=== PATIENT | male | born 1935 | race Caucasian/White ===

== ENCOUNTER 2017-10-05 10:08 | Inpatient (IN) ==
--- NOTE | 2017-10-05 14:57 | Orthopedic Consult Note ---
Date of Encounter: 10/05/17 Time of Encounter: 12:00 Assessment and Plan (1) Fracture of hip Current Visit: No Status: Acute I did discuss the diagnosis in detail the patient. He has a left displaced femoral neck fracture. Treatment options were discussed and my read recommendation was for left hip hemiarthroplasty. The risks discussed included but were not limited to stiffness, bleeding, infection, blood clots, damage to neurovascular structures, tendons, ligaments, and bone. Also discussed was the risk of continued symptoms and possible need for further procedures. I did discuss the anesthesia risks including stroke, heart attack, and . I did discuss the reasonable, foreseeable postoperative course with the patient. He did wish to proceed and consent was obtained. Qualifiers: Encounter type: initial encounter Fracture type: closed Laterality: left Qualified Code(s): S72.002A - Fracture of unspecified part of neck of left femur, initial encounter for closed fracture History of Present Illness HPI: Mr. Ledbetter is a 82 year old male. He is currently admitted to the hospitalist after being transferred in from [place]. The patient had a fall earlier today resulting in a displaced left femoral neck fracture. On my evaluation he complains of pain isolated to the left hip and groin. No numbness, tingling, or any other associated signs or symptoms or modifying factors. Pain is worse with movement and better with rest. Denies any headaches, neck pain, chest pain , bilateral upper extremity pain, and right lower extremity pain. Past Med Surg Social Fam HX - Past Medical History Medical history: asthma, COPD, dementia, GERD, thyroid disease Additional medical history: Patient reports "asthma." Unable to confirm other medical conditions. Psychiatric history: no psych history - Past Surgical History Surgical History: cataract, cholecystectomy Additional surgical history: Cataract surgery bilateral per patient. - Social History Smoking Status: Never smoker Smokeless Tobacco Status: No Alcohol use: none Drug use: none - Family History Father History Unknown: Yes Adopted: [place]: Toni Family Member Ethnicity: Non- Living Status: Age at : 55 Cause of : ephysema and pneumonia Hx Family Cardiac Disorders: No Hx Family Respiratory Disorders: Yes (ephysema and pneumonia) Hx Family Cancer: No Hx Family GI Disorders: No Hx Family Genitourinary Disorders: No Hx Family Endocrine Disorder: No Hx Family Musculoskeletal Disorders: No Hx Family Neuromuscular Disorders: No Hx Family Neurologic Disorders: No Hx Family HEENT Disorders: No Hx Family Autoimmune Disorders: No Hx Family Reproductive Disorders: No Hx Family Psychosocial Disorders: No Hx Family Medical Disorders: No Mother History Unknown: Yes Adopted: [place]: Dinah Family Member Ethnicity: Non- Living Status: Age at : 86 Hx Family Cardiac Disorders: No Hx Family Respiratory Disorders: No Hx Family Cancer: No Hx Family GI Disorders: Yes (gall bladder removal) Hx Family Genitourinary Disorders: No Hx Family Endocrine Disorder: Yes (Diabetes) Hx Family Musculoskeletal Disorders: No Hx Family Neuromuscular Disorders: No Hx Family Neurologic Disorders: No Hx Family HEENT Disorders: No Hx Family Autoimmune Disorders: No Hx Family Reproductive Disorders: No Hx Family Psychosocial Disorders: No Hx Family Medical Disorders: No Medications and Allergies Acetaminophen [Tylenol] 650 mg PO Q6HR PRN 10/05/17 [History] Budesonide/Formoterol 160/4.5 [Symbicort 160/4.5] 2 puff IH BIDR 10/05/17 [ History] Cholecalciferol (Vitamin D3) [Vitamin D] 50,000 unit PO DAILY 10/05/17 [History] Furosemide [Lasix] 40 mg PO DAILY 10/05/17 [History] Ipratropium/Albuterol Neb [Duoneb] 3 ml IH Q4HR PRN 10/05/17 [History] Levothyroxine Sodium [Levoxyl] 75 mcg PO DAILY 10/05/17 [History] Metoclopramide [Reglan] 5 mg PO ACHS 10/05/17 [History] Omeprazole 20 mg PO DAILY 10/05/17 [History] Potassium Chloride [K-Tab ER] 20 meq PO DAILY 10/05/17 [History] PredniSONE [Cassie] 5 mg PO DAILY 10/05/17 [History] Umeclidinium [place] [Incruse Ellipta] 62.5 mcg IH BID 10/05/17 [History] 3 Allergy/AdvReac Type Severity Reaction Status Date / Time No Known Allergies Allergy Verified 07/12/16 13:30 All Systems Reviewed: Constitutional and musculoskeletal systems were reviewed and are negative unless otherwise stated in history of present illness. Physical Exam - Constitutional Vitals: Temp Pulse Resp BP Pulse Ox 99.0 F 89 16 150/82 90 10/05/17 11:54 10/05/17 11:54 10/05/17 11:54 10/05/17 11:54 10/05/17 11:54 Constitutional -Vitals reviewed -The patient is well developed and well nourished. -Mood is pleasant. -The patient is well groomed. Psychiatric -The patient is fully alert and oriented x 3. Respiratory: -Respiratory effort normal Abdomen: -Soft abdomen -Non tender -Non distended: Left upper extremity: -No deformities. The overlying skin is intact. No obvious signs of acute trauma. -No tenderness to palpation throughout. -No significant pain with passive motion of the shoulder, elbow, wrist, and fingers within the limits of the bed. -Able to make an "OK" sign, cross the index and long fingers, and extend the thumb. -Sensation grossly intact to light touch throughout the median, radial, and ulnar distributions. -Radial pulse is present; Fingers have good capillary refill. Right upper extremity: -No deformities. The overlying skin is intact. No obvious signs of acute trauma. -No tenderness to palpation throughout. -No significant pain with passive motion of the shoulder, elbow, wrist, and fingers within the limits of the bed. -Able to make an "OK" sign, cross the index and long fingers, and extend the thumb. -Sensation grossly intact to light touch throughout the median, radial, and ulnar distributions. -Radial pulse is present; Fingers have good capillary refill. Left lower extremity: -The extremity is shortened and externally rotated. The overlying skin is intact. -There is tenderness in the groin region as well as the proximal lateral thigh. -I did not range the hip due to the known fracture. -No tenderness along the distal thigh, leg, ankle, foot, or toes. -Able to dorsiflex and plantarflex the ankle and toes. -Sensation is grossly intact to light touch throughout the sural, saphenous, superficial peroneal, and deep peroneal distributions. -Toes have good capillary refill. Right lower extremity: -No deformities. The overlying skin is intact. No obvious signs of acute trauma. -No tenderness to palpation throughout. -No pain with passive motion of the hip, knee, ankle, and toes within the limits of the bed. -No pain with axial loading of the thigh. -Able to dorsiflex and plantarflex the ankle and toes. -Sensation is grossly intact to light touch throughout the sural, saphenous, superficial peroneal, and deep peroneal distributions. -Toes have good capillary refill. Diagnostic Imaging: I did personally review and interpret X as the left hip show a displaced femoral neck fracture Results - Labs Labs: All other labs normal. Consult Discharge Plan - Plan Referrals: Valentina Odonnell MD [Primary Care Provider] -
[2017-10-05] MEDS ORDERED: *HR* FentaNYL (PF) 100 MCG/2 ML VIAL ONE (15:08)
[2017-10-05] MEDS ORDERED: *HR* Midazolam HCl 2 MG/2 ML VIAL ONE (15:08)
[2017-10-05] MEDS ORDERED: Lidocaine -MPF 4% 5 ML AMPUL ONE (15:08)
[2017-10-05] MEDS ORDERED: Lidocaine -MPF 2% 2 ML VIAL ONE (15:08)
[2017-10-05] MEDS ORDERED: *HR* Succinylcholine 200 MG/10 ML VIAL IVP ONE (15:08)
[2017-10-05] MEDS ORDERED: Ondansetron 4 MG/2 ML VIAL ONE (15:08)
[2017-10-05] MEDS ORDERED: Dexamethasone 4 MG/ML VIAL ONE (15:08)
[2017-10-05] MEDS ORDERED: *HR* Propofol 200 MG/20 ML VIAL IVP ONE (15:09)
--- NOTE | 2017-10-05 15:17 | Anesthesia Evaluation PreOp ---
Date of Encounter: 10/05/17 Time of Encounter: 15:26 - Past History Planned Operation: Left Gordon Hip Arthroplasty Cardiac History: Denies any Significant Hx Pulmonary History: COPD FISHER TRAP History: Denies Any Significant HX Other Medical History: Thyroid, GERD, Other (Steroids, unknown indication) Anesthesia History: No Prior Anesthetic Complications, Past Anesthesia Alcohol Use: none Drug use: none Medications and Allergies Acetaminophen [Tylenol] 650 mg PO Q6HR PRN 10/05/17 [History] Budesonide/Formoterol 160/4.5 [Symbicort 160/4.5] 2 puff IH BIDR 10/05/17 [ History] Cholecalciferol (Vitamin D3) [Vitamin D] 50,000 unit PO DAILY 10/05/17 [History] Furosemide [Lasix] 40 mg PO DAILY 10/05/17 [History] Ipratropium/Albuterol Neb [Duoneb] 3 ml IH Q4HR PRN 10/05/17 [History] Levothyroxine Sodium [Levoxyl] 75 mcg PO DAILY 10/05/17 [History] Metoclopramide [Reglan] 5 mg PO ACHS 10/05/17 [History] Omeprazole 20 mg PO DAILY 10/05/17 [History] Potassium Chloride [K-Tab ER] 20 meq PO DAILY 10/05/17 [History] PredniSONE [Cassie] 5 mg PO DAILY 10/05/17 [History] Umeclidinium [place] [Incruse Ellipta] 62.5 mcg IH BID 10/05/17 [History] 3 Allergy/AdvReac Type Severity Reaction Status Date / Time No Known Allergies Allergy Verified 07/12/16 13:30 - Meds/Allergy Pre-op Review Medications Reviewed: Yes Allergies Reviewed: Yes Beta Blockers on Current Med List: No Anesthesia Results - Imaging Additional studies: TTE 08/2017: LVEF 60%. Normal LV chamber size, wall thickness and function. Mild left ventricular diastolic dysfunction. Normal right ventricular structure and function. No evidence of pulmonary hypertension. No significant valvular dysfunction. PFT 08/2017: Spirometry shows moderate airway obstructive pattern No response to inhaled bronchodilators is seen MVV is decreased. Lung Volumes SVC is moderately reduced. Flow Volume Loop: Obstructive Anesthesia Exam O2 Sat Height 1.68 m Weight 69.7 kg BMI 25 Vital Signs Temp Pulse Resp BP Pulse Ox 99.0 F 89 16 150/82 90 10/05/17 11:54 10/05/17 11:54 10/05/17 11:54 10/05/17 11:54 10/05/17 11:54 NPO (# of Hours): 8 - HEENT Pupil (Motor): Pupils equal Mallampati: III Teeth: Edentulous Oral Opening: Greater than 3 - FISHER TRAP LOC: Oriented - Cardiac Rhythm: Regular - Pulmonary Breath Sounds: bilateral Clear Anesthesia Assess/Plan ASA Score: 4 Modified Demetrio Scale for Level of Consciousness: Cooperative, oriented, and tranquil Anesthetic Plan: Regional (SAB) Monitoring Plan: Standard Monitors Recovery Plan: PACU
[2017-10-05] MEDS ORDERED: Ethanol\\Acetic Acid\\Na Ace\\Ben 1,000 ML IRRIG.SOLN IR ONE (15:24)
[2017-10-05] MEDS ORDERED: *HR* Morphine Sulfate/PF 10 MG/10 ML AMPUL ONE (15:38)
[2017-10-05] MEDS ORDERED: Propofol 500 MG/50 ML INFUS..BTL ONE (15:53)
[2017-10-05] MEDS ORDERED: *HR* OxyCODONE/APAP 5/325 TABLET PO PRN (16:31)
[2017-10-05] MEDS ORDERED: *HR* PHENYLEPHRINE 1,000 MCG/10 ML SYRINGE IVP ONE (16:32)
--- NOTE | 2017-10-05 16:35 | Anesthesia Procedures ---
Date of Encounter: 10/05/17 Time of Encounter: 15:45 Procedures: Anesthesia - Epidural/Spinal Patient ID/Chart reviewed: Yes Patient examined: Yes Consent Obtained: Yes Supplemental Oxygen: Nasal Cannula Supplemental Oxygen Rate (L/min): 2 Sedation: Fentanyl (mcg): 25 Site Prep: Aseptic Technique, Sterile prep and drape, Povidone-Iodine 1% Patient position: right lateral decubitus Local Anesthetic: Lidocaine 1% Amount of Local Anesthetic used: 3 Interspace Used: L4-L5 Blood: No CSF: Yes (SPINAL ) Paresthesia: No Spinal Needle Gauge: 24 (PENCAN) Spinal Dose: BUPIVICAINE 0.5% 2ML ISO Vitals + FHT's: Vital Signs - Last 8 Hours Temp Pulse Resp BP Pulse Ox 10/05/17 15:49 98 16 115/76 98 10/05/17 11:54 99.0 F 89 16 150/82 90 Intake and Output 10/05/17 10/05/17 10/05/17 07:59 15:59 23:59 Output Total 400 / 400 Balance -400 / -400 Output: Catheter 400 / 400 Other: Weight 69.7 kg Patient Weight 10/05/17 23:59 Weight 69.7 kg
--- NOTE | 2017-10-05 16:53 | Orthopedic Operative Note ---
Date of procedure: 10/05/17 Pre-op diagnosis: Displaced left hip fracture Post-op diagnosis: same Implants: Procedure: Left hip hemiarthroplasty Estimated blood loss: 100 cc Hardware: Bipolar and Roma Metal replacement femoral stem size 10, bipolar head 48, +3 taper Procedural Notes: Operative procedure: The patient was brought to the operating room and placed on the operating room table. After general anesthesia was administered the patient was placed in the lateral decubitus position with the operative leg up. All pressure points were padded appropriately and the head was stabilized in the neutral position. The operative extremity was prepped and draped in the sterile surgical fashion patient received IV antibiotic prior to skin incision. A standard posterior approach is made to the operative hip, the incision was made through the skin and subcutaneous tissue hemostasis was obtained with Bovie cautery. Using careful sharp dissection the fascia was identified and incised exposing the external rotators. The external rotators were released off the greater trochanter and tagged with #2 FiberWire suture. The capsule was T'd open the femoral head was removed. The femoral neck cut was made at the appropriate level. The hip was brought into internal rotation and prepared with the box maker wood followed by the canal finder followed by broaching process in 20 degrees anteversion. It was broached up to the appropriate size 10. The femoral implant was impacted in place in 20 degrees of anteversion. Trial reduction found the hip to be stable with the appropriate +3 taper 48 bipolar head. The trials were removed and the real implants were impacted in place. The hip was reduced, the hip had full extension and full flexion of the knee was in full extension.the patient had apparent equal leg length. The hip had excellent stability with forward flexion to 90 degrees adduction of 30 degrees and internal rotation of 60 degrees. The hip had no shuck. The hip was irrigated out with 2 L of pulse irrigation after it sat for 1 minute with an antibacterial solution. The fascia was closed with a running #2 PDS suture.. The deep tissue was irrigated and closed deep with #1 PDS suture superficially with 0 PDS suture and skin was closed with Dermabond. The patient was placed in a sterile dressing and abduction pillow. The patient was extubated and transferred to the recovery room in stable condition. Anesthesia: spinal Surgeon: Sixto Cifuentes Was there an city carrier assistant present: No Estimated blood loss (cc): 200 Condition: stable Disposition: PACU
[2017-10-05 17:35] LABS: Hematocrit 41.2 % (37.5-50.1); Hemoglobin 13.5 g/dL (12.9-16.9)
--- NOTE | 2017-10-05 17:45 | Anesthesia Evaluation Post Op ---
Date of Encounter: 10/05/17 Time of Encounter: 17:40 - Vital Signs Vital Signs: vss - Airway Airway: Non-obstructed - Cardiovascular Baseline Rhythm - Mental Status Mental Status: Alert & Oriented, Answers Appropriately - Pain Pain Scale used: HilarioEleni (Faces) - Nausea Vomiting Nausea Vomiting: Not Present - Hydration Hydration: Ice chips - Discharge PostOp Status: Transfer Patient to floor
--- NOTE | 2017-10-05 18:35 | Internal Med History&Physical ---
Date of Encounter: 10/05/17 Time of Encounter: 11:00 Internal Medicine - H&P: HPI Chief complaint: Left hip pain Admitted From: Home History of present illness: Patient is an 82-year-old male with past medical history significant for CHF, hypothyroid, GERD and asthma who presented to [place] [facility] on 10/05/17 due to left hip pain. She was found to have left hip fracture and was subsequently transferred to [facility] for further evaluation and management. Orthopedics was consulted and patient taken to surgery this afternoon for repair. Past Med Surg Social Fam HX - Past Medical History Medical history: asthma, COPD, dementia, GERD, thyroid disease Additional medical history: Patient reports "asthma." Unable to confirm other medical conditions. Psychiatric history: no psych history - Past Surgical History Surgical History: cataract, cholecystectomy Additional surgical history: Cataract surgery bilateral per patient. - Social History Smoking Status: Never smoker Smokeless Tobacco Status: No Alcohol use: none Drug use: none - Family History Father History Unknown: Yes Adopted: [place]: Toni Family Member Ethnicity: Non- Living Status: Age at : 55 Cause of : ephysema and pneumonia Hx Family Cardiac Disorders: No Hx Family Respiratory Disorders: Yes (ephysema and pneumonia) Hx Family Cancer: No Hx Family GI Disorders: No Hx Family Genitourinary Disorders: No Hx Family Endocrine Disorder: No Hx Family Musculoskeletal Disorders: No Hx Family Neuromuscular Disorders: No Hx Family Neurologic Disorders: No Hx Family HEENT Disorders: No Hx Family Autoimmune Disorders: No Hx Family Reproductive Disorders: No Hx Family Psychosocial Disorders: No Hx Family Medical Disorders: No Mother History Unknown: Yes Adopted: [place]: Dinah Family Member Ethnicity: Non- Living Status: Age at : 86 Hx Family Cardiac Disorders: No Hx Family Respiratory Disorders: No Hx Family Cancer: No Hx Family GI Disorders: Yes (gall bladder removal) Hx Family Genitourinary Disorders: No Hx Family Endocrine Disorder: Yes (Diabetes) Hx Family Musculoskeletal Disorders: No Hx Family Neuromuscular Disorders: No Hx Family Neurologic Disorders: No Hx Family HEENT Disorders: No Hx Family Autoimmune Disorders: No Hx Family Reproductive Disorders: No Hx Family Psychosocial Disorders: No Hx Family Medical Disorders: No Internal Medicine - H&P: Meds Acetaminophen [Tylenol] 650 mg PO Q6HR PRN 10/05/17 [History] Budesonide/Formoterol 160/4.5 [Symbicort 160/4.5] 2 puff IH BIDR 10/05/17 [ History] Cholecalciferol (Vitamin D3) [Vitamin D] 50,000 unit PO DAILY 10/05/17 [History] Furosemide [Lasix] 40 mg PO DAILY 10/05/17 [History] Ipratropium/Albuterol Neb [Duoneb] 3 ml IH Q4HR PRN 10/05/17 [History] Levothyroxine Sodium [Levoxyl] 75 mcg PO DAILY 10/05/17 [History] Metoclopramide [Reglan] 5 mg PO ACHS 10/05/17 [History] Omeprazole 20 mg PO DAILY 10/05/17 [History] Potassium Chloride [K-Tab ER] 20 meq PO DAILY 10/05/17 [History] PredniSONE [Cassie] 5 mg PO DAILY 10/05/17 [History] Umeclidinium [place] [Incruse Ellipta] 62.5 mcg IH BID 10/05/17 [History] 3 Allergy/AdvReac Type Severity Reaction Status Date / Time No Known Allergies Allergy Verified 07/12/16 13:30 All Systems PM: A 10-system review of systems was performed and is negative for pertinent findings except as documented above in the HPI. - Constitutional Vitals: Temp Pulse Resp BP Pulse Ox 98.7 F 98 16 120/83 98 10/05/17 18:15 10/05/17 18:15 10/05/17 18:15 10/05/17 18:15 10/05/17 18:15 General appearance: Present: A&O X 3, no acute distress - Eye Eye exam: Present: normal appearance - ENT ENT exam: Present: mucous membranes moist - Respiratory Respiratory exam: Present: CTAB. Absent: accessory muscle use, rales, rhonchi, wheezes - Cardiovascular Cardiovascular exam: Present: RRR, +S1, +S2. Absent: diastolic murmur, gallop, rubs, systolic murmur - GI/Abdominal GI/Abdominal exam: Present: normal bowel sounds, soft, no peritoneal signs. Absent: distended, tenderness - Extremities Exam Extremities exam: Absent: pedal edema - Neurological Exam Neurological exam: Present: oriented X3 - Psychiatric Psychiatric exam: Present: normal mood - Skin Skin exam: Present: normal color Internal Med - H&P Results - Labs CBC & Chem 7: 10/05/17 17:24 Labs: Short CBC 10/05/17 Range/Units 17:24 Hgb 13.5 (12.9-16.9) g/dL Hct 41.2 (37.5-50.1) % - Impressions ITS Impressions Hip X-Ray 10/05/17 16:00 IMPRESSION: 1. Left hip arthroplasty. No radiographic evidence of complication. D/ / Josue Fernandez MD / Josue Fernandez MD Interpreting Provider: Josue Fernandez MD - Assessment and plan (1) Fracture of hip Current Visit: No Status: Acute Assessment and plan: Patient was taken to surgery by orthopedics this afternoon Orthopedics following in appreciate any additional recommendations Qualifiers: Encounter type: initial encounter Fracture type: closed Laterality: left Qualified Code(s): S72.002A - Fracture of unspecified part of neck of left femur, initial encounter for closed fracture (2) GERD (gastroesophageal reflux disease) Current Visit: Yes Status: Acute Assessment and plan: Continue home dose of PPI Qualifiers: Qualified Code(s): K21.9 - Gastro-esophageal reflux disease without esophagitis (3) CHF (congestive heart failure) Current Visit: Yes Status: Acute Assessment and plan: continue home dose of Lasix Qualifiers: Heart failure chronicity: unspecified Qualified Code(s): I50.9 - Heart failure, unspecified (4) Hypothyroid Current Visit: Yes Status: Acute Assessment and plan: Continue home dose of levothyroxine Qualifiers: Hypothyroidism type: unspecified Qualified Code(s): E03.9 - Hypothyroidism , unspecified - Time Spent With Patient Total time spent is greater than 50% in coordination of care (as documented) at patient's floor/unit and/or counseling patient:
[2017-10-05] MEDS ORDERED: Naloxone 0.4 MG/ML INJ IVP PRN ×2 (18:39→18:40)
[2017-10-05] MEDS ORDERED: *HR* OxyCODONE Immed Rel 5 MG TABLET PO PRN (18:39)
[2017-10-05] MEDS ORDERED: Ondansetron 4 MG/2 ML VIAL IVP PRN (18:39)
[2017-10-05] MEDS ORDERED: MOM Conc 10 ML UD.LIQ PO PRN (18:39)
[2017-10-05] MEDS ORDERED: Temazepam 15 MG CAPSULE PO PRN (18:39)
[2017-10-05] MEDS ORDERED: Sennosides 8.6 MG TABLET PO PRN (18:39)
[2017-10-05] MEDS ORDERED: traMADol 50 MG TABLET PO PRN (18:39)
[2017-10-05] MEDS ORDERED: Acetaminophen 325 MG TABLET PO PRN (18:57)
[2017-10-05] MEDS: Ascorbic Acid 500 MG TABLET PO SCH (19:45)
[2017-10-05] MEDS: Ringers Solution, Lactated 1,000 ML IVC SCH (19:45)
[2017-10-05] MEDS: Cholecalciferol (D-3) 1,000 UNIT TABLET PO SCH (19:49)
[2017-10-05] MEDS: Budesonide/Formoterol 160/4.5 MDI IH SCH (19:56)
[2017-10-05] MEDS ORDERED: Ipratropium/Albuterol Neb 3 ML IH PRN (20:00)
[2017-10-05] MEDS: (Umeclidinium Bromide [Incruse Ellipta] 62.5 MCG) IH SCH (21:22)
[2017-10-05] MEDS: *HR* OxyCODONE/APAP 5/325 TABLET PO PRN (21:22)
[2017-10-06 00:53] LABS: Hematocrit 38.1 % (37.5-50.1); Hemoglobin 12.3 g/dL (12.9-16.9)
[2017-10-06 00:54] LABS: Basophils % 0.1 %; Hematocrit 37.9 % (37.5-50.1); Hemoglobin 12.3 g/dL (12.9-16.9); Immature Granulocytes % 0.4 % (0-4); Lymphocytes # 1.3 K/mcL (0.6-4.6); Lymphocytes % 10.7 %; Mean Corpuscular HGB Conc 32.5 g/dL (31.6-35.5); Mean Corpuscular Hemoglobin 30.6 pg (28.0-33.3); Mean Corpuscular Volume 94.3 fL (83.0-100.0); Mean Platelet Volume 9.4 fL (9.4-12.4); Monocytes # 0.9 K/mcL (0.0-1.3); Monocytes % 7.4 %; Neutrophils # 9.6 K/mcL (1.6-8.9); Platelet Count 234 K/mcL (140-400); Red Blood Count 4.02 M/mcL (4.19-5.50); Red Cell Distribution Width 13.1 % (11.5-14.5); Segmented Neutrophils % 81.4 %
[2017-10-06 01:09] LABS: Potassium 4.4 mEq/L (3.5-5.1)
[2017-10-06] MEDS: *HR* OxyCODONE/APAP 5/325 TABLET PO PRN (07:39)
[2017-10-06] MEDS: Multivit/Ca/Min/Fe/FA 1 TAB TABLET PO SCH (07:39)
[2017-10-06] MEDS: predniSONE 5 MG TABLET PO SCH (07:39)
[2017-10-06] MEDS: Cholecalciferol (D-3) 1,000 UNIT TABLET PO SCH (07:39)
[2017-10-06] MEDS: Aspirin Enteric Coated 81 MG Tablet PO SCH (07:39)
[2017-10-06] MEDS: Ascorbic Acid 500 MG TABLET PO SCH ×2 (07:40→17:04)
[2017-10-06] MEDS: (Umeclidinium Bromide [Incruse Ellipta] 62.5 MCG) IH SCH ×2 (07:40→20:35)
[2017-10-06] MEDS: Furosemide 40 MG TABLET PO SCH (07:40)
[2017-10-06] MEDS: Budesonide/Formoterol 160/4.5 MDI IH SCH ×2 (07:59→22:58)
--- NOTE | 2017-10-06 08:23 | Orthopedics Progress Note ---
Date of Encounter: 10/06/17 Time of Encounter: 08:23 Subjective Interval history: Patient was seen this morning doing well without complaints. Afebrile vital signs stable. Operative extremity: Neurovascularly intact Dressing clean dry and intact Calves nontender Assessment and plan: Continue with postoperative care Hematocrit 37 patient stable for transfer back facility Objective Vital signs: Vital Signs Temp Pulse Resp BP Pulse Ox 10/06/17 07:28 98.4 F 88 16 146/80 93 10/06/17 04:58 98.4 F 85 16 114/68 93 10/06/17 00:20 98.7 F 94 15 115/72 92 10/05/17 21:21 99.4 F 103 15 143/78 97 10/05/17 21:11 98.7 F 110 15 132/74 97 10/05/17 19:59 16 98 10/05/17 19:56 98.5 F 111 15 148/84 100 10/05/17 19:14 98.3 F 104 12 145/88 95 10/05/17 18:39 98.7 F 97 16 139/78 96 10/05/17 18:15 98.7 F 98 16 120/83 98 10/05/17 18:00 97.8 F 85 16 133/84 97 10/05/17 17:43 98.8 F 96 16 140/77 98 10/05/17 17:33 97.4 F L 97 16 127/78 97 10/05/17 17:23 95 16 121/71 98 10/05/17 17:13 101 16 111/87 98 10/05/17 17:03 97.1 F L 106 16 100/78 99 10/05/17 15:49 98 16 115/76 98 10/05/17 11:54 99.0 F 89 16 150/82 90 Intake and Output 10/05/17 10/06/17 10/06/17 23:59 07:59 15:59 Intake Total 480 / 480 100 / 100 Output Total 550 / 550 400 / 400 Balance -70 / -70 -300 / -300 Intake: IV Fluids 100 / 100 Ancef 2,000 MG In 0.9 % Sodium 100 / 100 Chloride 100 ML @ 200 mls/hr IVPB Q8H [facility] Rx#:[id number] Oral 480 / 480 Output: Estimated Blood Loss 100 / 100 Catheter 450 / 450 400 / 400 Other: Meal Dinner Percent of Meal Consumed 100% Weight 71.3 kg Patient Weight 10/06/17 23:59 Weight 71.3 kg - Labs CBC & BMP: 10/06/17 00:16 10/06/17 00:16 Labs: Abnormal lab results WBC 11.8 K/mcL (4.3-11.1) H 10/06/17 00:16 RBC 4.02 M/mcL (4.19-5.50) L 10/06/17 00:16 Hgb 12.3 g/dL (12.9-16.9) L 10/06/17 00:16 Neutrophils # 9.6 K/mcL (1.6-8.9) H 10/06/17 00:16 Creatinine 1.41 mg/dL (0.70-1.30) H 10/06/17 00:16 Est GFR ( Amer) 58 (> 60) L 10/06/17 00:16 Est GFR (Non-Af Amer) 48 (> 60) L 10/06/17 00:16 Glucose 259 mg/dL (70-105) H 10/06/17 00:16 - VTE Documentation of Mechanical Device: Venous foot pump, device Consult Discharge Plan - Plan Referrals: Valentina Odonnell MD [Primary Care Provider] -
[2017-10-06] MEDS ORDERED: Aspirin Enteric Coated 81 MG Tablet PO SCH (09:00)
[2017-10-06] MEDS: Ringers Solution, Lactated 1,000 ML IVC SCH (11:19)
--- NOTE | 2017-10-06 12:43 | Event Note ---
Date of Encounter: 10/06/17 Time of Encounter: 12:42 PCR- POD#1 s/p Left hip hemiarthroplasty by Dr. Cifuentes on 10/05/17 for Displaced left hip fracture Patient seen at bedside. Resting comfortably in chair. Alert and oriented to person. Incision intact and dressings clean dry and intact. No calf tenderness bilaterally. Neurovascularly intact b/l LE. Labwork and medications reviewed. Vital signs reviewed. Pain control: Adequate Participating in PT. All questions and concerns addressed. Educated on use of incentive spirometer, ambulation, and hydration. Patient educated on post-operative restrictions and care. Addressed: see above. D/C plan: Return to ECF when medically stable. Patient to continue with: Total Hip replacement Precautions Apply cold therapy 3-6x/day for 20 minutes at a time. Encourage ambulation throughout the day and incentive spirometer 10x/hour. Elevate affected extremity as tolerated. Brace: Wear hip abduction pillow when laying/sleeping Opsite placed. Keep dressing intact until first follow up appointment. If greater than 50% saturated, notify office, remove dressing and place appropriate dressing back in place. Leave Zipline intact. Opsite dressing is water resistant, not water-proof. OK to shower, but do not get dressing wet. Vital Signs Temp Pulse Resp BP Pulse Ox 10/06/17 19:56 98.7 F 106 18 163/83 92 10/06/17 15:28 99.3 F 99 18 146/81 95 10/06/17 11:02 98.7 F 96 20 147/78 92 10/06/17 07:59 20 93 10/06/17 07:28 98.4 F 88 16 146/80 93 10/06/17 04:58 98.4 F 85 16 114/68 93 10/06/17 00:20 98.7 F 94 15 115/72 92 Short CBC 10/06/17 10/06/17 Range/Units 00:16 00:16 WBC 11.8 H (4.3-11.1) K/mcL Hgb 12.3 L 12.3 L (12.9-16.9) g/dL Hct 37.9 38.1 (37.5-50.1) % Plt Count 234 (140-400) K/mcL Neutrophils # 9.6 H (1.6-8.9) K/mcL BMP 10/06/17 Range/Units 00:16 Sodium 136 (136-145) mEq/L Potassium 4.4 (3.5-5.1) mEq/L Chloride 101 (98-107) mEq/L Carbon Dioxide 27 (23-29) mEq/L BUN 20 (8-23) mg/dL Creatinine 1.41 H (0.70-1.30) mg/dL Glucose 259 H (70-105) mg/dL Calcium 9.0 (8.6-10.3) mg/dL
--- NOTE | 2017-10-06 15:43 | Internal Med Progress Note ---
Hospitalist Progress Note - Encounter Date of Encounter: 10/06/17 Time of Encounter: 15:43 - Subjective Interval History: Seen and examined at bedside. Patient is new to me, information obtained chart review and patient report although patient is a poor historian and does not provide much details. Sitting up in chair bedside. He has some left hip pain. He is not sure about discharge plan. - Exam Vitals: Temp Pulse Resp BP Pulse Ox 99.3 F 99 18 146/81 95 10/06/17 15:28 10/06/17 15:28 10/06/17 15:28 10/06/17 15:28 10/06/17 15:28 Exam: General appearance: Present: A&O X 2-3, no acute distress - Eye Eye exam: Present: normal appearance - ENT ENT exam: Present: mucous membranes moist - Respiratory Respiratory exam: Present: CTAB. Absent: accessory muscle use, rales, rhonchi, wheezes - Cardiovascular Cardiovascular exam: Present: RRR, +S1, +S2. Absent: diastolic murmur, gallop, rubs, systolic murmur - GI/Abdominal GI/Abdominal exam: ABD firm, mildly distended. Hypoactive bowel sounds - Extremities Exam Extremities exam: Left hip dressing in place; unable to assess incision Absent: pedal edema - Neurological Exam Neurological exam: Present: oriented X3 - Psychiatric Psychiatric exam: Present: normal mood - Skin Skin exam: Present: normal color - Assessment and Plan (1) Fracture of hip Current Visit: No Status: Inactive Assessment and Plan: s/p left hip hemiarthroplasty on 10/05/17 per [facility]. Cont pain control. ASA for DVT prophylaxis per Ortho. PT/OT; will likely return to ECF however awaiting approval/confirmation (2) CHRISTIANO (acute kidney injury) Current Visit: Yes Status: Acute Assessment and Plan: in the setting of NPO for OR. Give small bolus with history of CHF although he appears euvolemic. (3) Abdominal distension Current Visit: Yes Status: Acute Assessment and Plan: noted on 10/06 exam with hypoactive bowel sounds. KUB pending. On bowel regimen (4) Hypothyroid Current Visit: Yes Status: Acute Assessment and Plan: per hx. Cont home levothyroxine (5) GERD (gastroesophageal reflux disease) Current Visit: Yes Status: Acute Assessment and Plan: per hx. Cont home PPI (6) CHF (congestive heart failure) Current Visit: Yes Status: Acute Assessment and Plan: per hx. Appears euvolemic. Continue home Lasix DVT Prophylaxis: ASA per Ortho, SCDs - Time Spent with Patient Total time spent is greater than 50% in coordination of care (as documented) at patient's floor/unit and/or counseling patient: Internal Medicine: Result - Labs CBC & Chem 7: 10/06/17 00:16 10/06/17 00:16 Labs: Short CBC 10/05/17 10/06/17 10/06/17 Range/Units 17:24 00:16 00:16 WBC 11.8 H (4.3-11.1) K/mcL Hgb 13.5 12.3 L 12.3 L (12.9-16.9) g/dL Hct 41.2 38.1 37.9 (37.5-50.1) % Plt Count 234 (140-400) K/mcL Neutrophils # 9.6 H (1.6-8.9) K/mcL BMP 10/06/17 00:16 Sodium 136 Potassium 4.4 Chloride 101 Carbon Dioxide 27 BUN 20 Creatinine 1.41 H Glucose 259 H Calcium 9.0 - Impressions Impressions Hip X-Ray 10/05/17 16:00 IMPRESSION: 1. Left hip arthroplasty. No radiographic evidence of complication. D/ / Josue Fernandez MD / Josue Fernandez MD Interpreting Provider: Josue Fernandez MD - VTE Documentation of Mechanical Device: Venous foot pump, device Consult Discharge Plan - Plan Referrals: Valentina Odonnell MD [Primary Care Provider] - (1) Fracture of hip Qualifiers: Encounter type: initial encounter Fracture type: closed Laterality: left Qualified Code(s): S72.002A - Fracture of unspecified part of neck of left femur , initial encounter for closed fracture (4) Hypothyroid Qualifiers: Hypothyroidism type: unspecified Qualified Code(s): E03.9 - Hypothyroidism, unspecified (5) GERD (gastroesophageal reflux disease) Qualifiers: Qualified Code(s): K21.9 - Gastro-esophageal reflux disease without esophagitis (6) CHF (congestive heart failure) Qualifiers: Heart failure chronicity: unspecified Qualified Code(s): I50.9 - Heart failure, unspecified
[2017-10-06] MEDS ORDERED: 0.9 % Sodium Chloride 1,000 ML IVC SCH (16:00)
[2017-10-07 01:52] LABS: Hematocrit 36.2 % (37.5-50.1); Mean Corpuscular HGB Conc 33.1 g/dL (31.6-35.5); Mean Corpuscular Hemoglobin 31.7 pg (28.0-33.3); Mean Corpuscular Volume 95.8 fL (83.0-100.0); Mean Platelet Volume 9.5 fL (9.4-12.4); Platelet Count 200 K/mcL (140-400); Red Blood Count 3.78 M/mcL (4.19-5.50); Red Cell Distribution Width 13.2 % (11.5-14.5)
[2017-10-07 02:05] LABS: BUN/Creatinine Ratio 22 (6-26); Blood Urea Nitrogen 25 mg/dL (8-23); Calcium 8.8 mg/dL (8.6-10.3); Carbon Dioxide 30 mEq/L (23-29); Chloride 101 mEq/L (98-107); Glucose 156 mg/dL (70-105); Osmolality,Calculated 290 (280-300); Sodium 136 mEq/L (136-145); eGFR For Non-African Americans > 60 (> 60)
[2017-10-07] MEDS: *HR* OxyCODONE/APAP 5/325 TABLET PO PRN (05:38)
[2017-10-07] MEDS: Budesonide/Formoterol 160/4.5 MDI IH SCH ×2 (07:57→20:21)
--- NOTE | 2017-10-07 09:38 | Orthopedics Progress Note ---
Date of Encounter: 10/07/17 Time of Encounter: 09:37 Subjective Interval history: Patient was seen this morning doing well without complaints. Afebrile vital signs stable. Hgb 12.0 Operative extremity: Neurovascularly intact Dressing clean dry and intact Calves nontender Assessment and plan: Continue with postoperative care, plan for transfer back to facility Objective Vital signs: Vital Signs Temp Pulse Resp BP Pulse Ox 10/07/17 07:59 18 92 10/07/17 06:41 98.4 F 79 16 151/78 95 10/07/17 04:05 98.6 F 86 18 145/74 93 10/06/17 23:26 98.6 F 99 18 127/71 92 10/06/17 22:58 16 94 10/06/17 19:56 98.7 F 106 18 163/83 92 10/06/17 15:28 99.3 F 99 18 146/81 95 10/06/17 11:02 98.7 F 96 20 147/78 92 Intake and Output 10/06/17 10/07/17 10/07/17 23:59 07:59 15:59 Output Total 50 / 50 125 / 125 Balance -50 / -50 -125 / -125 Output: Urine 50 / 50 125 / 125 Other: # Voids 1 1 - Labs CBC & BMP: 10/07/17 00:45 10/07/17 00:45 Labs: Abnormal lab results WBC 12.2 K/mcL (4.3-11.1) H 10/07/17 00:45 RBC 3.78 M/mcL (4.19-5.50) L 10/07/17 00:45 Hgb 12.0 g/dL (12.9-16.9) L 10/07/17 00:45 Hct 36.2 % (37.5-50.1) L 10/07/17 00:45 Neutrophils # 9.6 K/mcL (1.6-8.9) H 10/06/17 00:16 Carbon Dioxide 30 mEq/L (23-29) H 10/07/17 00:45 BUN 25 mg/dL (8-23) H 10/07/17 00:45 Glucose 156 mg/dL (70-105) H 10/07/17 00:45 - VTE Documentation of Mechanical Device: Venous foot pump, device Consult Discharge Plan - Plan Referrals: Valentina Odonnell MD [Primary Care Provider] -
[2017-10-07] MEDS: Aspirin Enteric Coated 81 MG Tablet PO SCH (09:48)
[2017-10-07] MEDS: Furosemide 40 MG TABLET PO SCH (09:49)
[2017-10-07] MEDS: predniSONE 5 MG TABLET PO SCH (09:49)
[2017-10-07] MEDS: Ascorbic Acid 500 MG TABLET PO SCH ×2 (09:49→17:11)
[2017-10-07] MEDS: Multivit/Ca/Min/Fe/FA 1 TAB TABLET PO SCH (09:49)
[2017-10-07] MEDS: Cholecalciferol (D-3) 1,000 UNIT TABLET PO SCH (09:49)
[2017-10-07] MEDS: (Umeclidinium Bromide [Incruse Ellipta] 62.5 MCG) IH SCH ×2 (09:51→19:29)
--- NOTE | 2017-10-07 10:13 | Internal Med Progress Note ---
Hospitalist Progress Note - Encounter Date of Encounter: 10/07/17 Time of Encounter: 10:16 - Subjective Interval History: Seen and examined at bedside. Laying in bed, appears comfortable. Having some mild left hip pain; rates 3/10. No chest pain or shortness of breath. No abdominal pain.. - Exam Vitals: Temp Pulse Resp BP Pulse Ox 98.4 F 79 18 151/78 92 10/07/17 06:41 10/07/17 06:41 10/07/17 07:59 10/07/17 06:41 10/07/17 07:59 Exam: General appearance: Present: A&O X 2-3, no acute distress - Eye Eye exam: Left eye red sclera, no drainage. Chronic (has been there over a year per patient) - ENT ENT exam: Present: mucous membranes moist - Respiratory Respiratory exam: Present: CTAB. Absent: accessory muscle use, rales, rhonchi, wheezes - Cardiovascular Cardiovascular exam: Present: RRR, +S1, +S2. Absent: diastolic murmur, gallop, rubs, systolic murmur - GI/Abdominal GI/Abdominal exam: ABD firm, mildly distended. Hypoactive bowel sounds - Extremities Exam Extremities exam: Left hip dressing in place; unable to assess incision Absent: pedal edema - Neurological Exam Neurological exam: Present: oriented X3 - Psychiatric Psychiatric exam: Present: normal mood - Skin Skin exam: Present: normal color - Assessment and Plan (1) Fracture of hip Current Visit: No Status: Inactive Assessment and Plan: s/p left hip hemiarthroplasty on 10/05/17 per [facility]. Cont pain control. ASA for DVT prophylaxis per Ortho. PT/OT; will likely return to ECF however awaiting approval/confirmation/PT eval (2) CHRISTIANO (acute kidney injury) Current Visit: Yes Status: Acute Assessment and Plan: in the setting of NPO for OR. Resolved with IV fluids. (3) Abdominal distension Current Visit: Yes Status: Acute Assessment and Plan: noted on 10/06 exam with hypoactive bowel sounds. KUB unremarkable. Cont bowel regimen (4) Hypothyroid Current Visit: Yes Status: Acute Assessment and Plan: per hx. Cont home levothyroxine (5) GERD (gastroesophageal reflux disease) Current Visit: Yes Status: Acute Assessment and Plan: per hx. Cont home PPI (6) CHF (congestive heart failure) Current Visit: Yes Status: Acute Assessment and Plan: per hx. Appears euvolemic. Continue home Lasix DVT Prophylaxis: ASA per Ortho - Time Spent with Patient Total time spent is greater than 50% in coordination of care (as documented) at patient's floor/unit and/or counseling patient: Plan of Care Discussed with: patient Internal Medicine: Result - Labs CBC & Chem 7: 10/07/17 00:45 10/07/17 00:45 Labs: Short CBC 10/07/17 Range/Units 00:45 WBC 12.2 H (4.3-11.1) K/mcL Hgb 12.0 L (12.9-16.9) g/dL Hct 36.2 L (37.5-50.1) % Plt Count 200 (140-400) K/mcL BMP 10/07/17 00:45 Sodium 136 Potassium 4.0 Chloride 101 Carbon Dioxide 30 H BUN 25 H Creatinine 1.14 Glucose 156 H Calcium 8.8 - Impressions Impressions KUB X-Ray 10/06/17 14:16 IMPRESSION: 1. Nonspecific bowel gas pattern with no evidence for obstruction. 2. Re- demonstration of postsurgical changes of left hip hemiarthroplasty. D/ / Camron Davis MD / Camron Davis MD Interpreting Provider: Camron Davis MD - VTE Documentation of Mechanical Device: Venous foot pump, device Consult Discharge Plan - Plan Referrals: Valentina Odonnell MD [Primary Care Provider] - (1) Fracture of hip Qualifiers: Encounter type: initial encounter Fracture type: closed Laterality: left Qualified Code(s): S72.002A - Fracture of unspecified part of neck of left femur , initial encounter for closed fracture (4) Hypothyroid Qualifiers: Hypothyroidism type: unspecified Qualified Code(s): E03.9 - Hypothyroidism, unspecified (5) GERD (gastroesophageal reflux disease) Qualifiers: Qualified Code(s): K21.9 - Gastro-esophageal reflux disease without esophagitis (6) CHF (congestive heart failure) Qualifiers: Heart failure chronicity: unspecified Qualified Code(s): I50.9 - Heart failure, unspecified
[2017-10-08 06:26] LABS: Hematocrit 33.1 % (37.5-50.1); Hemoglobin 10.9 g/dL (12.9-16.9); Mean Corpuscular HGB Conc 32.9 g/dL (31.6-35.5); Mean Corpuscular Hemoglobin 30.9 pg (28.0-33.3); Mean Corpuscular Volume 93.8 fL (83.0-100.0); Mean Platelet Volume 9.3 fL (9.4-12.4); Platelet Count 192 K/mcL (140-400); Red Blood Count 3.53 M/mcL (4.19-5.50); Red Cell Distribution Width 13.3 % (11.5-14.5)
[2017-10-08 08:03] LABS: BUN/Creatinine Ratio 26 (6-26); Blood Urea Nitrogen 25 mg/dL (8-23); Calcium 8.7 mg/dL (8.6-10.3); Carbon Dioxide 26 mEq/L (23-29); Chloride 102 mEq/L (98-107); Glucose 126 mg/dL (70-105); Osmolality,Calculated 290 (280-300); Potassium 3.9 mEq/L (3.5-5.1); Sodium 137 mEq/L (136-145); eGFR For Non-African Americans > 60 (> 60)
[2017-10-08] MEDS: Ascorbic Acid 500 MG TABLET PO SCH (09:03)
[2017-10-08] MEDS: Multivit/Ca/Min/Fe/FA 1 TAB TABLET PO SCH (09:03)
[2017-10-08] MEDS: Aspirin Enteric Coated 81 MG Tablet PO SCH (09:03)
[2017-10-08] MEDS: Cholecalciferol (D-3) 1,000 UNIT TABLET PO SCH (09:03)
[2017-10-08] MEDS: predniSONE 5 MG TABLET PO SCH (09:03)
[2017-10-08] MEDS: Furosemide 40 MG TABLET PO SCH (09:04)
[2017-10-08] MEDS: Budesonide/Formoterol 160/4.5 MDI IH SCH (09:42)
[2017-10-08] MEDS: (Umeclidinium Bromide [Incruse Ellipta] 62.5 MCG) IH SCH (09:56)
[2017-10-08] MEDS: *HR* OxyCODONE/APAP 5/325 TABLET PO PRN (11:36)
--- NOTE | 2017-10-08 14:33 | Discharge Summary ---
Orders not resulted at time of discharge: Pending orders 10/05/17 16:44 Surgical Pathology [PTH] Routine 10/09/17 04:00 BMP [Basic Metabolic Panel] AM 0400 Complete Blood Count w/o Diff [HEME] AM 0400 10/10/17 04:00 BMP [Basic Metabolic Panel] AM 0400 Complete Blood Count w/o Diff [HEME] AM 0400 10/11/17 04:00 BMP [Basic Metabolic Panel] AM 0400 Complete Blood Count w/o Diff [HEME] AM 0400 Date of Encounter: 10/08/17 Time of Encounter: 14:26 - Discharge Diagnosis (1) Fracture of hip Priority: Primary Status: Inactive Assessment and Plan: s/p left hip hemiarthroplasty on 10/05/17 per [facility]. Cont pain control. ASA for DVT prophylaxis for 4 weeks per Ortho. Continue PT/OT at SNF Qualifiers: Encounter type: initial encounter Fracture type: closed Laterality: left Qualified Code(s): S72.002A - Fracture of unspecified part of neck of left femur, initial encounter for closed fracture (2) CHRISTIANO (acute kidney injury) Priority: Primary Status: Acute Assessment and Plan: in the setting of NPO for OR. Resolved with IV fluids. (3) Abdominal distension Priority: Primary Status: Acute Assessment and Plan: noted on 10/06 exam with hypoactive bowel sounds. KUB unremarkable. Cont bowel regimen (4) Hypothyroid Priority: Secondary Status: Chronic Assessment and Plan: per hx. Cont home levothyroxine Qualifiers: Hypothyroidism type: unspecified Qualified Code(s): E03.9 - Hypothyroidism , unspecified (5) GERD (gastroesophageal reflux disease) Priority: Secondary Status: Chronic Assessment and Plan: per hx. Cont home PPI Qualifiers: Qualified Code(s): K21.9 - Gastro-esophageal reflux disease without esophagitis (6) CHF (congestive heart failure) Priority: Secondary Status: Chronic Assessment and Plan: per hx. Appears euvolemic. Continue home Lasix Qualifiers: Heart failure chronicity: unspecified Qualified Code(s): I50.9 - Heart failure, unspecified Hospital course: Please see assessment and plan for Hospital course Discharge discussed with: patient (Seen and examined at bedside. Still having some mild left hip pain but overall improved. No chest pain or shortness of breath. Tolerating regular diet.) - Time Spent with Patient Total time spent providing and/or coordinating discharge services: - Discharge Medications Prescriptions: OxyCODONE Immed Rel [Roxicodone 5 MG] 10 mg PO Q6HR PRN 3 Days #12 tablet PRN Reason: Pain Home Medications: Acetaminophen [Tylenol] 650 mg PO Q6HR PRN 10/05/17 [History] Budesonide/Formoterol 160/4.5 [Symbicort 160/4.5] 2 puff IH BIDR 10/05/17 [ History] Cholecalciferol (Vitamin D3) [Vitamin D3] 50,000 unit PO Q1W 10/05/17 [History] Furosemide [Lasix] 40 mg PO DAILY 10/05/17 [History] Ipratropium/Albuterol Neb [Duoneb] 3 ml IH Q4HR PRN 10/05/17 [History] Levothyroxine Sodium [Levoxyl] 75 mcg PO DAILY 10/05/17 [History] Metoclopramide [Reglan] 5 mg PO ACHS 10/05/17 [History] Omeprazole 20 mg PO DAILY 10/05/17 [History] Potassium Chloride [K-Tab ER] 20 meq PO TID 10/05/17 [History] PredniSONE [Cassie] 5 mg PO DAILY 10/05/17 [History] Umeclidinium [place] [Incruse Ellipta] 62.5 mcg IH BID 10/05/17 [History] Aspirin Enteric Coated [Aspirin EC] 162 mg PO DAILY tablet. 10/08/17 [Rx] Docusate [Colace] 100 mg PO BID capsule 10/08/17 [Rx] OxyCODONE Immed Rel [Roxicodone 5 MG] 10 mg PO Q6HR PRN 3 Days #12 tablet [Rx] Allergies/Adverse Reactions: 3 Allergy/AdvReac Type Severity Reaction Status Date / Time No Known Allergies Allergy Verified 10/07/17 11:29 Date of admission: 10/05/17 10:14 Primary care physician: Valentina Odonnell Consults: 10/05/17 11:53 Consult to Game Producer [CONS] Routine Reason for SW Consult: Discharge planning 10/05/17 12:05 Consult to Orthopedic Surgery [CONS] Routine Consulting Provider: [facility] Reason for Consult: left femur neck fx, Dr. membreno to complete call Call Completed: No 10/05/17 18:39 Consult to Nurse Navigator [CONS] Routine Comment: ortho navigator Consult to Occupational Therapy [CONS] Routine Comment: Evaluate, develop and implement POC Reason for Consult: total hip replacement Does patient have active BEDREST order?: No Is patient medically & hemodynamically stable?: Yes Consult to Physical Therapy [CONS] Routine Comment: Evaluate, develop and implement POC Reason for Consult: total hip replacement Does patient have active BEDREST order?: No Is patient medically & hemodynamically stable?: Yes Consult to Game Producer [CONS] Routine Reason for SW Consult: post op joint replacement RT Post Op Consult [CONS] Routine Discharging clinician: Angela Porras Anticipated date of discharge: 10/08/17 - Constitutional Vitals: Temp Pulse Resp BP Pulse Ox 98.9 F 102 18 153/71 92 10/08/17 12:30 10/08/17 12:30 10/08/17 12:30 10/08/17 12:30 10/08/17 12:30 General appearance: Present: A&O X 3, no acute distress - Head Head exam: Present: atraumatic, normocephalic - Eye Eye exam: Present: PERRL, conjuntiva pink, sclera anicteric Pupils: Present: PERRL - Expanded Eye Exam sclera: left: hemorrhage (chronic per patient ) - Neck Neck exam general surgery: Present: supple, trachea midline. Absent: lymphadenopathy - Respiratory Respiratory exam: Present: CTAB. Absent: accessory muscle use, rales, rhonchi, wheezes - Cardiovascular Cardiovascular exam: Present: RRR, +S1, +S2. Absent: diastolic murmur, gallop, rubs, systolic murmur - GI/Abdominal GI/Abdominal exam: Present: normal bowel sounds, soft, no peritoneal signs. Absent: distended, tenderness - Extremities Exam Extremities exam: Present: warm, radial pulses palpable and symmetrical. Absent : calf tenderness, cyanotic, pedal edema - Neurological Exam Neurological exam: Present: CN II-XII intact, oriented X3, no focal deficits. Absent: pronater drift, facial droop, speech deficit - Skin Skin exam: Present: dry, intact (Left hip incision with dressing clean, dry, intact) - Patient Status Disposition: Transfer SNF Condition: Good Functional capacity at discharge: uses cane/walker Overall status at discharge: patient is progressing back to baseline - Discharge Instructions Follow Up With: Valentina Odonnell MD [Primary Care Provider] - - Diet and Activity Activity: as per physical therapy Diet: advance to your usual diet - VTE Documentation of Mechanical Device: Venous foot pump, device
--- NOTE | 2017-10-08 14:44 | Physician Discharge Referral ---
ExtendedCare Referral Info Transfer To: SNF Provider in Charge: Angela Porras CNP Provider in Charge after Transfer: PCP Institutional Level of Care: Skilled - Diagnosis (1) Fracture of hip Status: Inactive (2) CHRISTIANO (acute kidney injury) Status: Acute (3) Abdominal distension Status: Acute (4) Hypothyroid Status: Chronic (5) GERD (gastroesophageal reflux disease) Status: Chronic (6) CHF (congestive heart failure) Status: Chronic - Transfer Medications Prescriptions: OxyCODONE Immed Rel [Roxicodone 5 MG] 10 mg PO Q6HR PRN 3 Days #12 tablet PRN Reason: Pain Home Medications: Acetaminophen [Tylenol] 650 mg PO Q6HR PRN 10/05/17 [History] Budesonide/Formoterol 160/4.5 [Symbicort 160/4.5] 2 puff IH BIDR 10/05/17 [ History] Cholecalciferol (Vitamin D3) [Vitamin D3] 50,000 unit PO Q1W 10/05/17 [History] Furosemide [Lasix] 40 mg PO DAILY 10/05/17 [History] Ipratropium/Albuterol Neb [Duoneb] 3 ml IH Q4HR PRN 10/05/17 [History] Levothyroxine Sodium [Levoxyl] 75 mcg PO DAILY 10/05/17 [History] Metoclopramide [Reglan] 5 mg PO ACHS 10/05/17 [History] Omeprazole 20 mg PO DAILY 10/05/17 [History] Potassium Chloride [K-Tab ER] 20 meq PO TID 10/05/17 [History] PredniSONE [Cassie] 5 mg PO DAILY 10/05/17 [History] Umeclidinium [place] [Incruse Ellipta] 62.5 mcg IH BID 10/05/17 [History] Aspirin Enteric Coated [Aspirin EC] 162 mg PO DAILY tablet. 10/08/17 [Rx] Docusate [Colace] 100 mg PO BID capsule 10/08/17 [Rx] OxyCODONE Immed Rel [Roxicodone 5 MG] 10 mg PO Q6HR PRN 3 Days #12 tablet [Rx] Allergies/Adverse Reactions: 3 Allergy/AdvReac Type Severity Reaction Status Date / Time No Known Allergies Allergy Verified 10/07/17 11:29 - Respiratory Orders None Smoking Cessation: Smoking cessation has been advised. For more information, call the [place] Tobacco Quit Line at 7-013-YQML-NOW. - Advance Directives Code Status: DNR-Comfort Care - Mobility Orders Ambulate - Rehabiliation Orders Rehab Potential: Good Rehab Orders: Evaluation for Physical Therapy, Evaluation for Occupational Therapy - Diet Orders Regular CERTIFICATION: I certify that the transfer of the above named patient to an Extended Care Facility is necessary for the continuing treatment of the diagnosis listed. The above information is true and accurate reflection of patient's current condition. Confidential - Redisclosure prohibited without a patient's written consent.
[2017-10-08 16:11] VITALS: BP 146/70
== END 2017-10-08 16:55 | DRG 470 ==
LOC: SAMDAY 10:08 → 3NENU 10:14
PROVIDERS: ADMIT Hospitalist; ATTEND Hospitalist